=== PATIENT | male | born 1985 | race Caucasian/White ===

== ENCOUNTER 2018-08-27 13:56 | Emergency (ER) | payer OTHER ==
[2018-08-27] MEDS ORDERED: Sodium Chloride 0.9% 10 ML Syringe FLUSH PRN (13:59)
[2018-08-27] MEDS ORDERED: Sodium Chloride 0.9% 2.5 ML Syringe FLUSH PRN (13:59)
[2018-08-27] MEDS ORDERED: Aspirin 81 MG Tab.Chew PO ONE (13:59)
--- NOTE | 2018-08-27 14:00 | EDM.PDOC ---
ED HPI GENERAL MEDICAL PROBLEM - General Chief Complaint: Chest Pain Stated Complaint: CHEST PAIN Time Seen by Provider: 08/27/18 13:59 Source of Information: Reports: Patient History Limitations: Reports: No Limitations - History of Present Illness INITIAL COMMENTS - FREE TEXT/NARRATIVE: HISTORY AND PHYSICAL: History of present illness: Patient is a 33-year-old male here with complaint of palpitations. He states it started this morning but he maybe has noticed some palpations on and off for the past week. He states today he really felt like his heart was pounding in his throat and he felt dizzy and lightheaded. He went to [facility] and states blood pressure was 175/130. He states that over the past week he has had some shortness of breath but has attributed this to the weather as he just came to [place] from [place] 2 weeks ago. He denies any chest pain, diaphoresis, nausea , left arm pain or left jaw pain. He states he has had a headache over the last week and states he does currently have one and to take 4 Advil this morning. Denies any visual disturbances, cough, fevers, chills, abdominal pain, urinary or bowel symptoms. He states that he was put on lisinopril 1 year ago but he did not take this regularly as it improved with diet and exercise. He notes that he has not been eating well recently and not exercising and believes this is why his blood pressure is elevated. Review of systems: As per history of present illness and below otherwise all systems reviewed and negative. Past medical history: As per history of present illness and as reviewed below otherwise noncontributory. Surgical history: As per history of present illness and as reviewed below otherwise noncontributory. Social history: No reported history of drug or alcohol abuse. Family history: As per history of present illness and as reviewed below otherwise noncontributory. Physical exam: General: Patient sitting comfortably in no acute distress and nontoxic appearing HEENT: Atraumatic, normocephalic, pupils reactive, negative for conjunctival pallor or scleral icterus, mucous membranes moist, throat clear, neck supple, nontender, trachea midline. No meningeal signs. Lungs: Clear to auscultation, breath sounds equal bilaterally, chest nontender. Heart: Tachycardic, S1S2, regular, negative for clicks, rubs, or overt murmur. Abdomen: Soft, nondistended, nontender. Negative for masses or hepatosplenomegaly. Negative for costovertebral tenderness. Pelvis: Stable nontender. Genitourinary: Deferred. Rectal: Deferred. Extremities: Atraumatic, negative for cords or calf pain. Neurovascular unremarkable. Neuro: Awake, alert, oriented. Cranial nerves II through XII unremarkable. Cerebellum unremarkable. Motor and sensory unremarkable throughout. Exam nonfocal. Notes: Patient states he has been feeling well and has not had any palpitations since arriving to the ED. Advised patient to follow up for possible holter monitor and recheck blood pressure. Diagnostics: CBC, CMP, troponin, EKG, chest x-ray Therapeutics: Labetalol 20 mg IV Prescriptions: Lisinopril Impression: Hypertension, palpitations Plan: 1. Take medication as instructed 2. Follow up with primary care provider and cardiology as discussed. 3. Return to ED as needed as discussed Definitive disposition and diagnosis as appropriate pending reevaluation and review of above. chest Pain Score (Numeric/FACES): 4 - Related Data Allergies Allergy/AdvReac Type Severity Reaction Status Date / Time No Known Allergies Allergy Verified 08/27/18 13:56 Home Meds: Home Meds Golimumab [Simponi] 1 dose INJECT ASDIRECTED 08/27/18 [History] ED ROS GENERAL - Review of Systems Review Of Systems: ROS reveals no pertinent complaints other than HPI. ED EXAM, GENERAL - Physical Exam Exam: See Below (See dictation) Course - Vital Signs Last Recorded V/S: Last Vital Signs Temp 97.0 F 08/27/18 13:58 Pulse 78 08/27/18 15:52 Resp 18 08/27/18 15:52 BP 147/106 H 08/27/18 15:52 Pulse Ox 98 08/27/18 15:52 Orthostatic Blood Pressure [ 158/116 Standing] Orthostatic Blood Pressure [ 158/113 Sitting] Orthostatic Blood Pressure [ 150/106 Supine] - Orders/Labs/Meds Orders: Active Orders 24 hr Category Date Time Status EKG Documentation Completion [RC] STAT Care 08/27/18 13:59 Active Orthostatic Vital Signs [RC] ASDIRECTED Care 08/27/18 14:18 Active Sodium Chloride 0.9% [Saline Flush] Med 08/27/18 13:59 Active 10 ml FLUSH ASDIRECTED PRN Sodium Chloride 0.9% [Saline Flush] Med 08/27/18 13:59 Active 2.5 ml FLUSH ASDIRECTED PRN Saline Lock Insert [OM.PC] Stat Oth 08/27/18 13:59 Ordered Medication Orders Sodium Chloride (Saline Flush) 10 ml FLUSH ASDIRECTED PRN PRN Reason: Keep Vein Open Last Admin: 08/27/18 14:18 Dose: 10 ml Sodium Chloride (Saline Flush) 2.5 ml FLUSH ASDIRECTED PRN PRN Reason: Keep Vein Open Last Admin: 08/27/18 14:18 Dose: 2.5 ml Labs: Laboratory Tests 08/27/18 08/27/18 Range/Units 14:00 14:00 WBC 10.57 (4.0-11.0) K/uL RBC 5.42 (4.50-5.90) M/uL Hgb 15.9 (13.0-17.0) g/dL Hct 45.0 (38.0-50.0) % MCV 83.0 (80.0-98.0) fL MCH 29.3 (27.0-32.0) pg MCHC 35.3 (31.0-37.0) g/dL RDW Std Deviation 38.4 (28.0-62.0) fl RDW Coeff of Melissa 13 (11.0-15.0) % Plt Count 358 (150-400) K/uL MPV 9.80 (7.40-12.00) fL Neut % (Auto) 61.4 (48.0-80.0) % Lymph % (Auto) 31.0 (16.0-40.0) % [place] % (Auto) 6.8 (0.0-15.0) % Eos % (Auto) 0.6 (0.0-7.0) % Baso % (Auto) 0.2 (0.0-1.5) % Neut # (Auto) 6.5 H (1.4-5.7) K/uL Lymph # (Auto) 3.3 H (0.6-2.4) K/uL [place] # (Auto) 0.7 (0.0-0.8) K/uL Eos # (Auto) 0.1 (0.0-0.7) K/uL Baso # (Auto) 0.0 (0.0-0.1) K/uL Nucleated RBC % 0.0 /100WBC Nucleated RBCs # 0 K/uL Sodium 142 (136-148) mmol/L Potassium 3.2 L (3.5-5.1) mmol/L Chloride 104 (98-107) mmol/L Carbon Dioxide 28.2 (21.0-32.0) mmol/L BUN 11 (7.0-18.0) mg/dL Creatinine 1.0 (0.8-1.3) mg/dL Est Cr Clr Drug Dosing 115.32 mL/min Estimated GFR (MDRD) > 60.0 ml/min Glucose 139 H (74-106) mg/dL Calcium 9.4 (8.5-10.1) mg/dL Total Bilirubin 0.7 (0.2-1.0) mg/dL AST 20 (15-37) IU/L ALT 26 (14-63) IU/L Alkaline Phosphatase 115 (46-116) U/L Troponin I < 0.050 (0.000-0.056) ng/mL Total Protein 7.9 (6.4-8.2) g/dL Albumin 4.2 (3.4-5.0) g/dL Globulin 3.7 (2.6-4.0) g/dL Albumin/Globulin Ratio 1.1 (0.9-1.6) Meds: Medications Generic Name Dose Route Start Last Admin Trade Name Freq PRN Reason Stop Dose Admin Sodium Chloride 10 ml 08/27/18 13:59 08/27/18 14:18 Saline Flush FLUSH 10 ml ASDIRECTED PRN Administration Keep Vein Open Sodium Chloride 2.5 ml 08/27/18 13:59 08/27/18 14:18 Saline Flush FLUSH 2.5 ml ASDIRECTED PRN Administration Keep Vein Open Discontinued Medications Generic Name Dose Route Start Last Admin Trade Name Freq PRN Reason Stop Dose Admin Aspirin 324 mg 08/27/18 13:59 08/27/18 14:17 Aspirin PO 08/27/18 14:00 324 mg ONETIME ONE Administration Labetalol HCl 10 mg 08/27/18 14:10 08/27/18 14:18 Normodyne IVPUSH 08/27/18 14:11 10 mg NOW ONE Administration Protocol Labetalol HCl 10 mg 02/04/19 15:08 08/27/18 15:21 Normodyne IVPUSH 08/27/18 15:09 10 mg NOW ONE Administration Protocol Departure - Departure Time of Disposition: 16:05 Disposition: Home, Self-Care 01 Condition: Good Clinical Impression: Hypertension, Palpitations Forms: ED Department Discharge Additional Instructions: The following information is given to patients seen in the emergency department who are being discharged to home. This information is to outline your options for follow-up care. We provide all patients seen in our emergency department with a follow-up referral. The need for follow-up, as well as the timing and circumstances, are variable depending upon the specifics of your emergency department visit. If you don't have a primary care physician on staff, we will provide you with a referral. We always advise you to contact your personal physician following an emergency department visit to inform them of the circumstance of the visit and for follow-up with them and/or the need for any referrals to a consulting specialist. The emergency department will also refer you to a specialist when appropriate. This referral assures that you have the opportunity for follow-up care with a specialist. All of these measure are taken in an effort to provide you with optimal care, which includes your follow-up. Under all circumstances we always encourage you to contact your private physician who remains a resource for coordinating your care. When calling for follow-up care, please make the office aware that this follow-up is from your recent emergency room visit. If for any reason you are refused follow-up, please contact the [facility] Emergency Department at and asked to speak to the emergency department charge nurse. [facility] Primary [facility] [address] [place] [id number] [facility] Cardiology [address] [place] [id number] [id number] 1. Take medication as instructed 2. Follow up with primary care provider and cardiology as discussed. 3. Return to ED as needed as discussed - My Orders Last 24 Hours: My Active Orders 08/27/18 13:59 EKG Documentation Completion [RC] STAT Sodium Chloride 0.9% [Saline Flush] 10 ml FLUSH ASDIRECTED PRN Sodium Chloride 0.9% [Saline Flush] 2.5 ml FLUSH ASDIRECTED PRN Saline Lock Insert [OM.PC] Stat 08/27/18 14:18 Orthostatic Vital Signs [RC] ASDIRECTED - Assessment/Plan Last 24 Hours: My Active Orders 08/27/18 13:59 EKG Documentation Completion [RC] STAT Sodium Chloride 0.9% [Saline Flush] 10 ml FLUSH ASDIRECTED PRN Sodium Chloride 0.9% [Saline Flush] 2.5 ml FLUSH ASDIRECTED PRN Saline Lock Insert [OM.PC] Stat 08/27/18 14:18 Orthostatic Vital Signs [RC] ASDIRECTED
[2018-08-27] MEDS ORDERED: Labetalol 20 MG/4 ML Syringe IVPUSH ONE ×2 (14:10→15:08)
[2018-08-27 14:40] LABS: CHLORIDE,CL 104 mmol/L (98-107); SODIUM,NA 142 mmol/L (136-148)
--- NOTE | 2018-08-27 15:49 | CR ---
EXAMINATION: Portable chest radiograph. HISTORY: Chest pain. FINDINGS: The trachea is midline. The cardiomediastinal silhouette is within normal limits. No pulmonary infiltrates, effusions or pneumothorax. Osseous structures appear unremarkable. IMPRESSION: No acute cardiopulmonary process.
== END 2018-08-27 16:16 | disposition home or self-care (01) ==
LOC: MW.ED 13:56
DX: R00.2 Palpitations (principal); I10 Essential (primary) hypertension
CPT/HCPCS: 36415; 71045; 80053; 84484; 85025; 96374; 96376; 99285; A9270; J3490